=== PATIENT | male | born 1950 | race Caucasian/White ===

== ENCOUNTER → 2019-10-02 | Outpatient (CLI) | payer MEDICARE, BC | LOC: COL.RAD 09:30 | DX: M25.551 Pain in right hip (principal) | CPT/HCPCS: J3301; Q9967 ==

== ENCOUNTER → 2019-12-27 | Outpatient (CLI) | payer MEDICARE, BC | LOC: COL.RAD 07:33 | DX: M25.552 Pain in left hip (principal) | CPT/HCPCS: J3301; Q9967 ==

== ENCOUNTER → 2020-05-21 | Outpatient (CLI) | payer MEDICARE, BC | LOC: COL.RAD 12:42 | DX: M16.11 Unilateral primary osteoarthritis, right hip (principal) | CPT/HCPCS: J3301; Q9967 ==

== ENCOUNTER → 2020-08-21 | Outpatient (CLI) | payer MEDICARE, BC | LOC: COL.RAD 09:43 | DX: M16.11 Unilateral primary osteoarthritis, right hip (principal) | CPT/HCPCS: J3301; Q9967 ==